=== PATIENT | male | born 1960 | race Caucasian/White ===

== ENCOUNTER 2017-03-05 13:25 | Emergency (ER) | payer OTHER ==
[2017-03-05 15:49] LABS: BASOPHIL % 0.7 % (0-2)
[2017-03-05 15:56] LABS: PLATELET COUNT 492 x10^3mcL (130-400); RED CELL DISTRIBUTION WIDTH 15.7 % (11.5-14.5)
[2017-03-05 15:57] LABS: CALCIUM 8.6 mg/dL (8.5-10.1); CARBON DIOXIDE 31.3 mmol/L (21-32); CHLORIDE SERUM 105 mmol/L (98-107); GFR1 > 60 mL/min; GLUCOSE SERUM 221 mg/dL (74-106); POTASSIUM SERUM 3.7 mmol/L (3.5-5.1); SODIUM SERUM 143 mmol/L (136-145)
[2017-03-05 16:02] LABS: ALKALINE PHOSPHATASE 96 U/L (46-116); ALT/SGPT 12 U/L (16-63); AST/SGOT 12 U/L (15-37); BILIRUBIN TOTAL 0.2 mg/dL (0.20-1.00); TOTAL PROTEIN, SERUM 7.7 g/dL (6.4-8.2)
[2017-03-05 16:03] LABS: ALBUMIN 2.8 g/dL (3.4-5.0)
[2017-03-05] MEDS ORDERED: METFORMIN HCL850 MG PO (16:17)
[2017-03-05] MEDS ORDERED: LANTUS SOLOS100 U/M1 SQ (16:17)
[2017-03-05 19:07] VITALS: BP 148/80
== END 2017-03-05 19:07 | disposition short-term general hospital (02) ==
LOC: ED 13:25
PROVIDERS: Emergency Medicine
DX: M43.9 Deforming dorsopathy, unspecified (principal); M46.46 Discitis, unspecified, lumbar region; E11.69 Type 2 diabetes mellitus with other specified complication; M46.26 Osteomyelitis of vertebra, lumbar region
CPT/HCPCS: 82962; J0295; J1885; J3490; J7030